=== PATIENT | female | born 1990 | race Caucasian/White ===

== ENCOUNTER 2017-09-15 11:51 | Emergency (ER) | payer SELFPAY ==
[2017-09-15] MEDS ORDERED: diphenhydrAMINE 50 MG/ML VIAL ONE (12:54)
[2017-09-15] MEDS ORDERED: Ketorolac Tromethamine 30 MG/ML VIAL ONE (12:55)
[2017-09-15] MEDS ORDERED: Prochlorperazine 10 MG/2 ML VIAL ONE (12:56)
[2017-09-15] MEDS ORDERED: Oxymetazoline HCl 0.05% ( 15 ML ) ONE (13:44)
== END 2017-09-15 15:58 | disposition home or self-care (01) ==
LOC: SCSER 11:51
DX: R11.2 Nausea with vomiting, unspecified (principal); H53.149 Visual discomfort, unspecified
CPT/HCPCS: 96361; 96365; 96375; J0780; J1200; J1885